=== PATIENT | male | born 1980 | race Two or more races ===

== ENCOUNTER 2017-03-18 08:47 | Emergency (ER) | payer SELFPAY ==
[2017-03-18] MEDS ORDERED: ASPIRIN 81 MG CHEWABLE TAB PO ONE (08:57)
--- NOTE | 2017-03-18 08:57 | CPEKG ---
Heart Rate: 87 RR Interval: 690 P-R Interval: 136 QRSD Interval: 84 QT Interval: 320 QTC Interval: 385 P [place]: 15 QRS [place]: 3 T Wave [place]: -11 EKG Severity - ABNORMAL ECG - EKG Impression: SINUS RHYTHM EKG Impression: NONSPECIFIC T ABNORMALITIES, INFERIOR LEADS Electronically Signed By: Jd Schilling 18-Mar-2017 09:13:39
--- NOTE | 2017-03-18 08:59 | EDPHY ---
H & P Time Seen by Provider: 03/18/17 08:54 HPI/ROS: CHIEF COMPLAINT: Chest pain HISTORY OF PRESENT ILLNESS: The patient is a 36-year-old man with no significant past medical history comes to the emergency department complaining of chest pain. He states that he has had a cold and cough for the last 2 weeks and then this morning woke up with midsternal chest pain it does hurt worse with deep inspiration. No leg pain or swelling. He states that he did have some blood in his sputum this morning. No fever. No diaphoresis. No nausea vomiting. REVIEW OF SYSTEMS: Constitutional: denies: chills, fever, recent illness, recent injury EENTM: denies: blurred vision, double vision, nose congestion Respiratory: denies: cough, shortness of breath Cardiac: See HPI Gastrointestinal/Abdominal: denies: abdominal pain, diarrhea, nausea, vomiting, blood streaked stools Genitourinary: denies: dysuria, frequency, hematuria, pain Musculoskeletal: denies: joint pain, muscle pain Skin: denies: lesions, rash, jaundice, bruising Neurological: denies: headache, numbness, paresthesia, tingling, dizziness, weakness Hematologic/Lymphatic: denies: blood clots, easy bleeding, easy bruising Immunologic/allergic: denies: HIV/AIDS, transplant EXAM: GENERAL: Anxious, hyperventilating HEAD: Atraumatic, normocephalic. EYES: Pupils equal round and reactive to light, extraocular movements intact, sclera anicteric, conjunctiva are normal. ENT: TMs normal, nares patent, oropharynx clear without exudates. Moist mucous membranes. NECK: Normal range of motion, supple without lymphadenopathy or JVD. LUNGS: Breath sounds clear to auscultation bilaterally and equal. No wheezes rales or rhonchi. HEART: Regular rate and rhythm without murmurs, rubs or gallops. ABDOMEN: Soft, nontender, normoactive bowel sounds. No guarding, no rebound. No masses appreciated. BACK: No CVA tenderness, no spinal tenderness, step-offs or deformities EXTREMITIES: Normal range of motion, no pitting or edema. No clubbing or cyanosis. NEUROLOGICAL: Cranial nerves II through XII grossly intact. Normal speech, normal gait. 5/5 strength, normal movement in all extremities, normal sensation PSYCH: Normal mood, normal affect. SKIN: Warm, dry, normal turgor, no visible rashes or lesions. Source: Patient Exam Limitations: No limitations - Medical/Surgical History Hx Asthma: No Hx Chronic Respiratory Disease: No Hx Diabetes: No Hx Cardiac Disease: No Hx Renal Disease: No Hx Cirrhosis: No Hx Alcoholism: No Hx HIV/AIDS: No - Family History Significant Family History: No pertinent family hx - Social History Smoking Status: Never smoked Alcohol Use: Sober Drug Use: None Constitutional: Initial Vital Signs Temperature (C) 36.6 C 03/18/17 08:57 Heart Rate 78 03/18/17 08:57 Respiratory Rate 18 03/18/17 08:57 Blood Pressure 133/93 H 03/18/17 08:57 O2 Sat (%) 98 03/18/17 08:57 O2 Delivery Mode Room Air Allergies/Adverse Reactions: No Known Allergies Allergy (Unverified 03/25/10 22:44) Home Medications: Medication Instructions Recorded NO HOME MEDS 03/25/10 Medical Decision Making - Diagnostics EKG Interpretation: An EKG obtained and was read and documented in trace view. Please see trace view for full reading and report. Sinus rhythm, S1 q3 T3 Imaging Results: Imaging Impressions Chest X-Ray 03/18/17 08:57 Impression: Hypoventilation. No acute process. Imaging: Discussed imaging studies w/ yardage caller Radiologist ED Course/Re-evaluation: 9:45 a.m. the patient is feeling much better. We discussed the lab and imaging results which are reassuring. He states that he has had this pain for about a week. His negative troponin is therefor very reassuring. I feel that this is likely pleurisy based on the patient's symptoms and presentation. We did discuss the other differential diagnoses. The patient would like to go home. I encouraged rest hydration and anti-inflammatories. We also discussed indications for returning to the emergency department as well as importance of follow up with his primary within the next few days. We did call his health promotion officer to receive approve for the morphine that he received. He is asking for a note for work. Differential Diagnosis: Partial list of the Differential diagnosis considered include but were not limited to; chest pain, pleurisy, bronchitis and although unlikely based on the history and physical exam, I also considered pneumonia, acute coronary disease, dissection, PE. I discussed these differential diagnoses and the plan with the patient as well as the usual and expected course. The patient understands that the diagnosis is provisional and that in medicine we are not always correct and that further workup is often warranted. Usual and customary warnings were given. All of the patient's questions were answered. The patient was instructed to return to the emergency department should the symptoms at all worsen or return, otherwise to followup with the physician as we discussed. - Data Points Laboratory Results: Laboratory Results 03/18/17 09:03 03/18/17 09:03 03/18/17 03/18/17 03/18/17 09:03 09:03 09:03 WBC 5.06 10^3/uL 10^3/uL (3.80-9.50) RBC 5.28 10^6/uL 10^6/uL (4.40-6.38) Hgb 16.1 g/dL g/dL (13.7-17.5) Hct 44.2 % % (40.0-51.0) MCV 83.7 fL fL (81.5-99.8) MCH 30.5 pg pg (27.9-34.1) MCHC 36.4 g/dL g/dL (32.4-36.7) RDW 12.8 % % (11.5-15.2) Plt Count 248 10^3/uL 10^3/uL (150-400) MPV 9.0 fL fL (8.7-11.7) Neut % (Auto) 69.5 % % (39.3-74.2) Lymph % (Auto) 16.8 % % (15.0-45.0) [place] % (Auto) 11.3 % % (4.5-13.0) Eos % (Auto) 1.6 % % (0.6-7.6) Baso % (Auto) 0.4 % % (0.3-1.7) Nucleat RBC Rel Count 0.0 % % (0.0-0.2) Absolute Neuts (auto) 3.52 10^3/uL 10^3/uL (1.70-6.50) Absolute Lymphs (auto) 0.85 10^3/uL L 10^3/uL (1.00-3.00) Absolute Monos (auto) 0.57 10^3/uL 10^3/uL (0.30-0.80) Absolute Eos (auto) 0.08 10^3/uL 10^3/uL (0.03-0.40) Absolute Basos (auto) 0.02 10^3/uL 10^3/uL (0.02-0.10) Absolute Nucleated RBC 0.00 10^3/uL 10^3/uL (0-0.01) Immature Gran % 0.4 % % (0.0-1.1) Immature Gran # 0.02 10^3/uL 10^3/uL (0.00-0.10) PT 12.4 SEC SEC (12.0-15.0) INR 0.95 (0.83-1.16) APTT 28.6 SEC SEC (23.0-38.0) D-Dimer < 0.27 ug/mLFEU ug/mLFEU (0.00-0.50) Sodium 140 mEq/L mEq/L (134-144) Potassium 4.2 mEq/L mEq/L (3.5-5.2) Chloride 102 mEq/L mEq/L (97-110) Carbon Dioxide 25 mEq/l mEq/l (22-31) Anion Gap 13 mEq/L mEq/L (8-16) BUN 9 mg/dL mg/dL (7-23) Creatinine 0.8 mg/dL mg/dL (0.7-1.3) Estimated GFR > 60 Glucose 102 mg/dL H mg/dL (70-100) Calcium 10.0 mg/dL mg/dL (8.5-10.4) Troponin I < 0.012 ng/mL ng/mL (0.000-0.034) Medications Given: Discontinued Medications Aspirin (Aspirin) 324 mg PO EDNOW ONE Stop: 03/18/17 08:58 Last Admin: 03/18/17 09:09 Dose: 324 mg Ketorolac Tromethamine (Toradol) 15 mg IVP EDNOW ONE Stop: 03/18/17 09:11 Last Admin: 03/18/17 09:12 Dose: 15 mg Morphine Sulfate (Morphine) 4 mg IVP EDNOW ONE Stop: 03/18/17 08:58 Last Admin: 03/18/17 09:41 Dose: 4 mg Ondansetron HCl (Zofran) 4 mg IVP EDNOW ONE Stop: 03/18/17 09:44 Last Admin: 03/18/17 09:46 Dose: 4 mg Departure - Departure Disposition: Home, Routine, Self-Care Clinical Impression: Chest pain Qualifiers: Chest pain type: unspecified Qualified Code(s): R07.9 - Chest pain, unspecified Upper respiratory tract infection Qualifiers: URI type: unspecified viral URI Qualified Code(s): J06.9 - Acute upper respiratory infection, unspecified; B97.89 - Other viral agents as the cause of diseases classified elsewhere; B97.89 - Other viral agents as the cause of diseases classified elsewhere Condition: Fair Instructions: Chest Pain (ED), Pleurisy (ED) Additional Instructions: Take anti-inflammatories as we discussed. Referrals: [facility] [Other] - 1-2 days without fail Stand Alone Forms: Work Excuse
[2017-03-18 09:01] VITALS: PULSE 78; RESP 18; TEMP 98
[2017-03-18] MEDS ORDERED: ONDANSETRON 4 MG/2 ML VIAL ONE (09:04)
[2017-03-18 09:09] LABS: % IMMATURE GRANULYOCYTES 0.4 % (0.0-1.1); ABSOLUTE IMMATURE GRANULOCYTES 0.02 10^3/uL (0.00-0.10); ADD DIFF? NO; ADD MORPH? NO; ADD SCAN? NO; ATYPICAL LYMPHOCYTE FLAG 10 (0-99); FRAGMENT RBC FLAG 0 (0-99); HEMATOCRIT 44.2 % (40.0-51.0); HEMOGLOBIN 16.1 g/dL (13.7-17.5); LEFT SHIFT FLG 0 (0-99); LIPEMIA HEMOLYSIS FLAG 90 (0-99); MEAN CELL HEMOGLOBIN 30.5 pg (27.9-34.1); MEAN CELL HEMOGLOBIN CONCENTR. 36.4 g/dL (32.4-36.7); MEAN CELL VOLUME 83.7 fL (81.5-99.8); PLATELET CLUMPS FLAG 10 (0-99); PLATELET COUNT 248 10^3/uL (150-400); RED BLOOD CELL COUNT 5.28 10^6/uL (4.40-6.38); RED CELL DISTRIBUTION WIDTH 12.8 % (11.5-15.2)
[2017-03-18] MEDS ORDERED: KETOROLAC 15 MG/1 ML SDV IVP ONE (09:10)
[2017-03-18 09:21] LABS: APTT 28.6 SEC (23.0-38.0); INR 0.95 (0.83-1.16); PROTIME(PATIENT) 12.4 SEC (12.0-15.0)
[2017-03-18 09:23] LABS: ANION GAP 13 mEq/L (8-16); CARBON DIOXIDE 25 mEq/l (22-31); CHLORIDE 102 mEq/L (97-110); CREATININE 0.8 mg/dL (0.7-1.3); GLOMERULAR FILTRATION RATE > 60; GLUCOSE 102 mg/dL (70-100); POTASSIUM 4.2 mEq/L (3.5-5.2); SODIUM 140 mEq/L (134-144)
[2017-03-18 09:36] LABS: TROPONIN I < 0.012 ng/mL (0.000-0.034)
[2017-03-18] MEDS ORDERED: ONDANSETRON 4 MG/2 ML VIAL IVP ONE (09:43)
[2017-03-18 10:26] VITALS: BP 119/62; O2SAT 93
== END 2017-03-18 10:25 | disposition home or self-care (01) ==
LOC: CED 08:47
DX: R07.9 Chest pain, unspecified (principal); J06.9 Acute upper respiratory infection, unspecified
CPT/HCPCS: 71020-PO; 80048-PO; 84484-PO; 85025-PO; 85378-PO; 85610-PO; 85730-PO; 96374; J1885; J2405

== ENCOUNTER 2017-05-13 10:51 | Inpatient (IN) | payer OTHER ==
--- NOTE | 2017-05-13 11:01 | EDPHY ---
H & P Time Seen by Provider: 05/13/17 10:58 HPI/ROS: CHIEF COMPLAINT: Full trauma activation, 20 ft fall, back pain, resolved lower extremity paresthesias HISTORY OF PRESENT ILLNESS: The patient presents to the emergency department as a full trauma activation. 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 The patient reportedly landed on his heels. He then fell to his back secondary to pain and weakness. The patient initially had significant weakness and paresthesias in his legs bilaterally. Those have improved during transport. The patient did not strike his head or lose consciousness. The patient complains of moderate pain throughout his thoracolumbar spine. The patient has mild abdominal pain. The patient denies headache. The patient denies significant past medical history. The patient takes no regular medications. REVIEW OF SYSTEMS: A comprehensive 10 point review of systems is otherwise negative aside from elements mentioned in the history of present illness. Source: Patient, EMS - Medical/Surgical History Hx Asthma: No Hx Chronic Respiratory Disease: No Hx Diabetes: No Hx Cardiac Disease: No Hx Renal Disease: No Hx Cirrhosis: No Hx Alcoholism: No Hx HIV/AIDS: No Other PMH: denies - Social History Smoking Status: Never smoked - Physical Exam Exam: General Appearance: Alert, no distress Head: Atraumatic Eyes: Pupils equal, round, reactive ENT, Mouth: No hemotympanum, no oral trauma Neck: In cervical collar, no palpable deformity Respiratory: No chest wall tender, no subcutaneous air, lungs clear bilaterally Cardiovascular: Regular rate and rhythm Abdomen: Tenderness to palpation in the right upper quadrant Skin: No lacerations, No abrasion Back: Tenderness to palpation in the lower thoracic, lumbar and sacral spine Extremities: Nontender, full range of motion Neurological: A&Ox3, normal motor function, normal sensory exam Constitutional: Initial Vital Signs Temperature (C) 36.4 C 05/13/17 10:51 Heart Rate 109 H 05/13/17 10:51 Respiratory Rate 18 05/13/17 10:51 Blood Pressure 138/90 H 05/13/17 10:51 O2 Sat (%) 99 05/13/17 10:51 O2 Delivery Mode Nasal Cannula O2 (L/minute) 4 Allergies/Adverse Reactions: No Known Allergies Allergy (Verified 05/13/17 11:38) Home Medications: Medication Instructions Recorded NO HOME MEDS 11/20/10 Medical Decision Making ED Course/Re-evaluation: The patient arrives to the emergency department as a full trauma activation. The patient was noted to be neurologically intact upon arrival with 5/5 strength noted in the bilateral lower extremities and normal reflexes. The patient was noted to be hemodynamically stable. He did have mild tenderness to palpation in his right upper quadrant. He had tenderness throughout his lower thoracic and lumbar spine. Given his mechanism of injury he was taken for a CT scan of the cervical, thoracic and lumbar spine in addition to a CT scan of the chest abdomen pelvis. His imaging studies demonstrate a complex lumbar fracture. The patient was seen by Dr. Jeison Chadwick from General surgery upon arrival in the emergency department. He consulted with Dr. Sherri Patel from Neurosurgery who will evaluate the patient. The patient will be admitted to the intensive care for further evaluation and management of his lumbar fractures. Differential Diagnosis: Differential diagnosis considered includes spinal cord injury, lumbar fracture, thoracic fracture, cervical spine fracture, intra-abdominal trauma Critical Care Time: Critical care time exclusive of procedures and exclusive of the PA's time was 35 minutes, performed by myself, Javy Wolf MD. The patient presents the ED as a full trauma activation with resolved acute neurologic symptoms in his lower extremities. The patient is noted to have an unstable lumbar fracture that will require admission to the hospital to the intensive care unit under the Trauma service for neuro surgical consultation. - Data Points Laboratory Results: Laboratory Results 05/13/17 11:00 05/13/17 11:00 05/13/17 05/13/17 11:00 11:00 WBC 9.63 10^3/uL H 10^3/uL (3.80-9.50) RBC 5.34 10^6/uL 10^6/uL (4.40-6.38) Hgb 16.3 g/dL g/dL (13.7-17.5) Hct 45.2 % % (40.0-51.0) MCV 84.6 fL fL (81.5-99.8) MCH 30.5 pg pg (27.9-34.1) MCHC 36.1 g/dL g/dL (32.4-36.7) RDW 13.1 % % (11.5-15.2) Plt Count 110 10^3/uL L 10^3/uL (150-400) MPV 10.9 fL fL (8.7-11.7) Neut % (Auto) 51.6 % % (39.3-74.2) Lymph % (Auto) 40.4 % % (15.0-45.0) [place] % (Auto) 4.4 % L % (4.5-13.0) Eos % (Auto) 1.2 % % (0.6-7.6) Baso % (Auto) 0.6 % % (0.3-1.7) Nucleat RBC Rel Count 0.0 % % (0.0-0.2) Absolute Neuts (auto) 4.97 10^3/uL 10^3/uL (1.70-6.50) Absolute Lymphs (auto) 3.89 10^3/uL H 10^3/uL (1.00-3.00) Absolute Monos (auto) 0.42 10^3/uL 10^3/uL (0.30-0.80) Absolute Eos (auto) 0.12 10^3/uL 10^3/uL (0.03-0.40) Absolute Basos (auto) 0.06 10^3/uL 10^3/uL (0.02-0.10) Absolute Nucleated RBC 0.00 10^3/uL 10^3/uL (0-0.01) Immature Gran % 1.8 % H % (0.0-1.1) Immature Gran # 0.17 10^3/uL H 10^3/uL (0.00-0.10) Sodium 141 mEq/L mEq/L (134-144) Potassium 4.4 mEq/L mEq/L (3.5-5.2) Chloride 105 mEq/L mEq/L (97-110) Carbon Dioxide 20 mEq/l L mEq/l (22-31) Anion Gap 16 mEq/L mEq/L (8-16) BUN 14 mg/dL mg/dL (7-23) Creatinine 0.8 mg/dL mg/dL (0.7-1.3) Estimated GFR > 60 Glucose 125 mg/dL H mg/dL (70-100) Calcium 9.9 mg/dL mg/dL (8.5-10.4) Medications Given: Discontinued Medications Hydromorphone HCl (Dilaudid) 1 mg IVP EDNOW ONE Stop: 01/08/18 11:31 Last Admin: 05/13/17 11:32 Dose: 1 mg Departure - Departure Disposition: [facility] In[facility] Acute Clinical Impression: Lumbar verterbral fracture, traumatic Condition: Fair Referrals: Patient,NotPresent [Primary Care Provider] - As per Instructions
[2017-05-13 11:09] LABS: PLATELET COUNT 110 10^3/uL (150-400)
[2017-05-13] MEDS ORDERED: HYDROmorphONE/DILAUDID 1 MG/ML INJ ONE (11:24)
[2017-05-13] MEDS ORDERED: HYDROmorphONE/DILAUDID 1 MG/ML INJ IVP ONE (11:30)
[2017-05-13] MEDS ORDERED: ONDANSETRON DISINTEGRATING 4 MG TAB PO PRN (11:45)
[2017-05-13] MEDS ORDERED: LORazepam 2 MG/ML INJ ONE (11:52)
[2017-05-13] MEDS ORDERED: LORazepam 2 MG/ML INJ IVP ONE (11:56)
[2017-05-13 11:59] LABS: INR 0.96 (0.83-1.16)
--- NOTE | 2017-05-13 12:16 | GHP ---
[f rep st] HISTORY AND PHYSICAL CHIEF COMPLAINT: Back pain. 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 Initially he complained of some numbness in his legs, but this resolved. Brought in on a backboard with a C-collar in place. Alert, oriented, stable vital signs. History is obtained from the patient. ALLERGIES: None. CURRENT MEDICATIONS: None. SOCIAL HISTORY: Nonsmoker, nondrinker. PREVIOUS SURGERY: None. REVIEW OF SYSTEMS: Denies asthma, heart trouble, diabetes, epilepsy, rheumatic fever. His chief complaint is lumbar pain. PHYSICAL EXAMINATION: HEENT: Head atraumatic. Tongue protrudes in the midline. PERRL, EOMI. Sclerae are nonicteric. NECK: C-collar is removed. Neck is palpated. No tenderness. The collar was left on but then removed later by myself when the CT scan was also corroborative of no cervical injury and again the patient was nontender. There is no supraclavicular or axillary crepitus. Clavicles are intact. LUNGS: Clear. HEART: Normal S1, S2, without murmurs. Sternum stable. Ribs stable. ABDOMEN: Soft, benign. Mid and lower lumbar pain to palpation when the patient is rolled on his side. PELVIS: Stable to compression. EXTREMITIES: Lower extremities are atraumatic. Heels, ankles have full range of motion. Strength in the feet, both with plantar and dorsiflexion was normal. Sensation intact. IMAGING: The patient underwent a CT scan of the neck and abdomen which was remarkable for multiple fractures of the lumbar spine including 1-5 transverse process fractures on the right, fractures at least of 2, 3, 4 of the vertebral bodies with the L4 fracture being the most significant, going through the pedicles, and apparently facets involved as well. No visceral injuries in the abdomen. ASSESSMENT: Probable unstable L4 fracture, although neurosurgery has not given an opinion yet. I have spoken to Sherri Patel who will review the films and see the patient. The patient will be sent to the ICU for neuro monitoring and we will await neurosurgical evaluation. /[id number]/MODL MTDD
[2017-05-13] MEDS ORDERED: KETAMINE 200 MG/20 ML VIAL ONE (12:23)
[2017-05-13] MEDS ORDERED: KETAMINE 200 MG/20 ML VIAL IVP ONE (12:25)
--- NOTE | 2017-05-13 13:52 | GCON ---
[f rep st] CONSULTATION Patient seen in the emergency department in room 2 at 11:52 a.m. on 05/13/2017, with Dr. Patel. CHIEF COMPLAINT: 1. Full trauma activation. 2. Twenty foot fall, landing on back, with resolved lower extremity paresthesias. 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 He was 20 fe et up and he fell backwards, landing on his back. He did have a transient period of paresthesias at t he time, but denies any at this time. The patient was seen in the emergency department both by myself and Dr. Patel on 05/13/2017 at 11:52 a.m. Patient came to the emergency department as a full traum a activation, as I mentioned above. He was working on trimming a tree and he fell 20 feet. He reporte d to the ER doctor that he landed on his heels first, but reported to us that he landed on his back f irst. It is unclear exactly which occurred first, the heels or the back, but nonetheless, he has thor acic and lumbar spine pain on our exam. He denies any significant weakness in his legs. No paresthesi as in his legs bilaterally. Denies any saddle numbness. No groin numbness. He states he is able to vo id okay. He did not strike his head. Did not lose consciousness. He has no neck pain. No chest pain. No shortness of breath. The patient was seen by Dr. Chadwick, from trauma surgery and we were consul [place] to help manage his fracture that he had in his back. REVIEW OF SYSTEMS: A comprehensive 10-point review of systems was otherwise negative, other than not ed in [facility]. PAST MEDICAL HISTORY: None. PAST SURGICAL HISTORY: None. MEDICATIONS: None. ALLERGIES: No known drug allergies. FAMILY HISTORY: Is reviewed and noncontributory. SOCIAL HISTORY: The patient is . He lives in the [place] area. 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 He d oes not smoke, does not drink any alcohol, does not use any illicit drugs. PHYSICAL EXAMINATION: GENERAL: This is an awake, alert, oriented male, in no acute distress. VITAL S IGNS: Most recent vital signs, blood pressure 138/90 with a MAP of 106, heart rate 109, respiratory r ate of 18, 99% on 4 L nasal cannula, temperature 36.4. HEENT: Head is normocephalic, atraumatic. Pupi ls are equal, round, reactive to light. EOMI is intact. Full visual alfonso by confrontation. Ears are patent. Nose is patent. NECK: Soft and supple. No midline tenderness. Full range of motion in flexio n, extension, lateral bending and rotation. RESPIRATORY: Deferred. CARDIAC: Deferred. ABDOMEN: Soft, nontender. No peritoneal signs. NEURO: Patient is awake, alert, oriented to name, place, location, da te, time, situation. Memory is intact to immediate, past, and current events. Speech: No aphasia, dys arthria, dysphonia. Cranial nerves 2-12 grossly intact. Motor: Patient has 5/5 strength in all muscle groups of the bilateral lower extremities to include deltoids, biceps, triceps, brachioradialis, wri st flexors, extensors, cylinder press operator, intrinsic fingers, iliopsoas, quadriceps, hamstring, plantar flexion, do rsiflexion, EHL testing. Sensation is grossly intact to light touch throughout all dermatomal distrib utions of lower extremities. Negative straight leg raise. Negative ELMER test. Reflexes of biceps, tr iceps, brachioradialis, knee jerk and ankle jerk 2+ out of 4. Toes are downgoing bilaterally. Narvaez 's negative. Babinski evidence of clonus. DECISION MAKING DIAGNOSTIC STUDIES: Laboratory tests: Obtained 05/13/2017, shows a white count 9.63, with an H and H of 16.3 and 45.2, platelet count of 110. Coags on 05/13/2017, shows a PT of 13.0, IN R 0.96, and PTT of 23.8. Chemistry on 05/13/2017, sodium 141, potassium 4.4, chloride 105, CO2 20, BU N 14, creatinine 0.8, and glucose 125. Imaging: CT of the lumbar spine shows a fracture of L4 through the vertebral body. There is also spla caron of the L4-L5 facet joint noted. Chest and abdominal CT deferred. Thoracic spine CT, no acute fra cture noted. Pending MRI of the thoracic spine. Pending MRI of the lumbar spine. IMPRESSION: 1. Full trauma activation. 2. Fall of 20 feet, with lower back and thoracic spine pain. 3. L4 fracture, with splaying of L4-L5 facet joints. PLAN/DISCUSSION: The patient is a 36-year-old male who fell 20 feet off a ladder while he was trimmi ng some trees. He came in as a full trauma activation to [facility]. Trauma evaluatio n was performed with Dr. Chadwick. We were consulted from Neurosurgery. He has splaying of the L4-5 joint with a fracture of L4 itself. Recommendations for an MRI of the thoracic and lumbar spine were given to the patient. These images were ordered. The patient will remain in bed rest. We can logroll him at this time, but no recommendations for ambulation at this point. The patient was seen, evaluate d both myself and Dr. Patel in the emergency department. The patient will be on step-down status wi th the ICU, and we will get a pending MRI of the thoracic and lumbar spine. The patient understands a nd agrees. All questions and concerns were answered. /[id number]/MODL
--- NOTE | 2017-05-13 15:25 | ASMTCMCOM ---
CM Note CM Note Notes: Patient brought into ED via EMS as Full Trauma Activation after he fell approximately 20 feet from a tree he was trimming. Patient admitted for several lumbar fractures and further neuro monitoring. Patient's brother, Reyes Polanco (Lorenzo) ([phone]) was only listed emergency contact. Spoke with Mitesh; updated on patient's status and he later arrived to the ED. Mitesh contacted pt's mother Huma Be ([phone]) and patient's Olivia Polanco ([phone]); both also later arrived to the ED. Patient and Olivia live in [place]. Patient works for [employer] ([phone]). Pt's sales branch manager is Francisco Javier Mendez ([phone]) and presented to the ED, provided update and workman's comp paperwork. Neurosurg to follow; anticipate PT/OT evals when medically stable. CM to follow. Date Signed: 05/13/2017 03:24 PM Electronically Signed By:Priya Geronimo RN
[2017-05-13] MEDS: LR 1,000 ML IV SCH ×2 (16:18→18:35)
--- NOTE | 2017-05-13 18:20 | SOAPPROG ---
[facility] Progress Note Assessment/Plan: Chart update: Pt needed the MRI done and received sedation and pain medication for this. The films were reviewed with Dr Patel and Dr Floyd this afternoon and recommended a LSO brace. MRI of the T spine was negative. MRI of the L spine reviewed with Dr Muro as well that shows intradural and epidural hematoma and noted fracture at L4 level. Reports of neuro intact at that time. No current saddle numbness or perianal numbness. No LE complaints of numbness , tingling or weakness. At the time this afternoon we recommended to continue to watch. HOB ok to 25-30 degrees without brace. Brace fit by [employer]. Upright xrays done that were reviewed with Dr Patel that show stable findings. RN reported at 1747 that patient unable to void and straight cath done. Unsure if this change in neuro status or result of recent sedation and pain medications. We will have patient stand and void and if unable we will likely need to take to OR tonight for a L3-L5 fusion and decompression. Dr Patel aware of this newly reported finding. Pt made NPO in case surgery is needed in the near future. 05/13/17 18:09 Objective: Vital Signs Temp Pulse Resp BP Pulse Ox 36.8 C 116 H 23 H 123/78 H 98 05/13/17 12:35 05/13/17 16:32 05/13/17 16:32 05/13/17 16:32 05/13/17 16:32 05/12/17 05/13/17 05/14/17 05:59 05:59 05:59 Intake Total 1627 Output Total 950 Balance 677 PT 13.0 SEC (12.0-15.0) 05/13/17 10:58 INR 0.96 (0.83-1.16) 05/13/17 10:58 ICD10 Worksheet Patient Problems: Problems Problem Status Onset Lumbar verterbral fracture, traumatic Acute
[2017-05-13] MEDS ORDERED: ceFAZolin 2 GM in D5W 100 ML IV ONE (19:16)
[2017-05-13] MEDS ORDERED: ceFAZolin 2 GM/SWFI 2 GM/20 ML SYR IVP ONE (19:30)
[2017-05-13] MEDS ORDERED: BUPIVACAINE 0.25% 30 ML SDV ONE ×2 (20:40→20:42)
--- NOTE | 2017-05-13 20:40 | PDANEPAE ---
ANE Past Medical History - Cardiovascular History Hx Hypertension: No Hx Arrhythmias: No Hx Chest Pain: No Hx Coronary Artery / Peripheral Vascular Disease: No Hx CHF / Valvular Disease: No Hx Palpitations: No - Pulmonary History Hx Oxygen in Use at Home: No Hx Sleep Apnea: No - Endocrine History Hx Diabetes: No - Chronic Pain History Chronic Pain: No ANE Review of Systems Review of Systems: - Exercise capacity METS (RN): 5 METS ANE Patient History - Allergies Allergies/Adverse Reactions: No Known Allergies Allergy (Verified 05/13/17 11:38) - Home Medications Home Medications: Multivitamins [Multivitamin (*)] 1 each PO DAILY 05/13/17 [Last Taken Unknown] - Smoking Hx Smoking Status: Never smoked ANE Labs/Vital Signs - Labs Result Diagrams: 05/13/17 11:00 05/13/17 11:00 - Vital Signs Blood Pressure: 124/78 Heart Rate: 107 Respiratory Rate: 16 O2 Sat (%): 99 Height: 170.18 cm Weight: 77.11 kg ANE Anesthesia Plan Anesthesia Plan: general endotracheal anesthesia
[2017-05-13] MEDS ORDERED: SURGIFLO MATRIX KIT WITH THROMBIN 8ml TP ONE (20:42)
[2017-05-13] MEDS ORDERED: THROMBIN (BOVINE) 5,000 UNIT VIAL TP ONE (20:42)
[2017-05-13] MEDS ORDERED: CHLORHEXIDINE GLUC HIBICLENS 118 ML BTL TP ONE (20:42)
[2017-05-13] MEDS ORDERED: BACITRACIN 50,000 UNITS/10 ML SYR IRR ONE (20:44)
[2017-05-13] MEDS ORDERED: PROPOFOL/EMULSION 500 MG/50 ML BOTTLE IV ONE ×2 (20:52→23:02)
[2017-05-13] MEDS ORDERED: fentaNYL 100 MCG/2 ML INJ ONE (20:52)
[2017-05-13] MEDS ORDERED: PROPOFOL 200 MG/20 ML VIAL ONE (20:53)
[2017-05-13] MEDS ORDERED: REMIFENTANIL HCL 1 MG VIAL ONE ×2 (21:09)
[2017-05-13] MEDS ORDERED: LIDOCAINE 2% 5 ML SDV ONE (21:11)
[2017-05-13] MEDS ORDERED: ONDANSETRON 4 MG/2 ML VIAL ONE (21:11)
[2017-05-13] MEDS ORDERED: DEXAMETHASONE 4 MG/ML VIAL ONE (21:11)
[2017-05-13] MEDS ORDERED: ROCURONIUM 50 MG/5 ML VIAL ONE (21:11)
[2017-05-13] MEDS ORDERED: SUCCINYLCHOLINE CHLORIDE 200 MG/10 ML SYR IVP ONE ×2 (21:11)
[2017-05-13] MEDS ORDERED: PHENYLEPHRINE HCL 100 MCG/ML SYR ONE (21:32)
[2017-05-13] MEDS ORDERED: NALOXONE HCL 0.4 MG/ML INJ IVP PRN (22:33)
[2017-05-13] MEDS ORDERED: PROMETHAZINE HCL 25 MG/ML INJ IVP PRN (22:33)
[2017-05-13] MEDS ORDERED: fentaNYL 100 MCG/2 ML INJ IVP PRN (22:33)
[2017-05-13] MEDS ORDERED: ONDANSETRON 4 MG/2 ML VIAL IVP PRN (22:33)
[2017-05-13] MEDS ORDERED: DIAZEPAM 10 MG/2 ML SYR IVP PRN (22:33)
[2017-05-13] MEDS ORDERED: LR 500 ML IV PRN (22:33)
[2017-05-13] MEDS ORDERED: MEPERIDINE 25 MG/ML SYR IVP PRN (22:33)
[2017-05-14] MEDS ORDERED: REMIFENTANIL HCL 1 MG VIAL ONE ×2 (00:10→00:14)
[2017-05-14] MEDS ORDERED: PROPOFOL/EMULSION 500 MG/50 ML BOTTLE IV ONE (00:10)
[2017-05-14] MEDS ORDERED: DIAZEPAM 10 MG/2 ML SYR ONE (00:49)
[2017-05-14] MEDS ORDERED: BACITRACIN 50,000 UNITS/10 ML SYR IRR ONE (00:52)
[2017-05-14] MEDS ORDERED: BISACODYL 10 MG SUPP PR PRN (01:24)
[2017-05-14] MEDS ORDERED: NALOXONE HCL 0.4 MG/ML INJ IVP PRN (01:24)
[2017-05-14] MEDS ORDERED: NS 500 ML IV PRN (01:24)
[2017-05-14] MEDS ORDERED: POLYETHYLENE GLYCOL 3350 17 GM PKT PO PRN (01:24)
[2017-05-14] MEDS ORDERED: LACTULOSE 20 GM/30 ML UDCUP PO PRN (01:24)
[2017-05-14] MEDS ORDERED: diphenhydrAMINE 25 MG CAP PO PRN (01:24)
[2017-05-14] MEDS ORDERED: ONDANSETRON 4 MG/2 ML VIAL IVP PRN (01:24)
[2017-05-14] MEDS ORDERED: HYDROmorphONE/DILAUDID 6 MG/30 ML PCA IV PRN (01:24)
[2017-05-14] MEDS ORDERED: MAGNESIUM HYDROXIDE 30 ML UDCUP PO PRN (01:24)
[2017-05-14] MEDS ORDERED: NS W/ 20 KCl/L 1,000 ML IV SCH (01:30)
[2017-05-14] MEDS ORDERED: DEXMEDETOMIDINE IN 0.9 % NACL 100 ML IV SCH (01:30)
--- NOTE | 2017-05-14 01:34 | GOP ---
[f rep st] OPERATIVE REPORT DATE OF OPERATION: 05/14/2017 SURGEON: Sherri Patel DO SCALE TANK OPERATOR: Holland Aquino PA-C PREOPERATIVE DIAGNOSIS: 1. L4 burst fracture. 2. Cauda equina syndrome. POSTOPERATIVE DIAGNOSIS: 1. L4 burst fracture. 2. Cauda equina syndrome. PROCEDURE PERFORMED: 1. L3, L4, L5 posterior pedicle screws. 2. L3-4 and L4-5 posterior arthrodesis. 3. L4-5 laminectomy. 4. L4 open reduction of fracture. 5. Autograft, allograft, bone morphogenetic proteins. FINDINGS: SPECIMENS: None. ESTIMATED BLOOD LOSS: 250 mL. INDICATIONS: This is a 36-year-old male, who fell approximately 20 feet out of a tree, sustaining an L4 two-column injury with disruption of the L4-5 facets with gross instability and L4 pedicle and po sterior body disruption. There was also an epidural hematoma and a reported subdural hematoma, altho ugh not seen in surgery. He developed urinary retention, and despite a large number of narcotics it was difficult to determine whether or not this was a cauda equina, so I had a discussion with the coy ramirez. He and his family elected to move forward with decompression and fusion. DESCRIPTION OF PROCEDURE: He was identified, consented, sites were marked, brought to the operating room, anesthetized under general endotracheal tube anesthesia, and rolled onto the Oswaldo table. Al l pressure points were appropriately padded. He was prepped and draped in the usual sterile fashion. Incision was marked with an 18-gauge spinal needle and the O-arm. Incision was anesthetized with 0 .5% Marcaine with epinephrine. Incision was made with a 10 blade. Hemostasis was obtained with Bovi e and bipolar cautery and Aquamantys. Dissecting down, there was significant disruption of the poste rior musculature and fascia, coming down on a complete disruption of the interspinous ligament at L4 and L5. We dissected down onto the lamina around the facet joints. The facet at L4-5 was significan tly widened as well. Once we had verified we were in the appropriate position under x-ray, we placed a stealth stereotactic arm, and then using the awl stereotactically created a starting point at L5 o n the left, then stereotactically tapped and measured and stereotactically placed a 6.5 x 40 mm Medtr onic Solera screw. After verifying the hole with a ball-tip probe, we completed this procedure at L4 on the left with a 6.5 x 45, reducing that fracture fragment, as well as a 6.5 x 45 mm at L3 on the left, a 6.5 x 50 mm at L3 on the right, a 6.5 x 45 mm screw at L4 on the right, reducing that fractur e fragment, and a 6.5 x 40 mm screw at L5 on the right. We stimmed all screws. The left L3 screw st immed at 13. Everything else stimmed above 20. We performed a stereotactic spin. I was not entirel y pleased with the trajectory of the L3 and L4 on the left, so they were removed and new stereotactic starting point and trajectory were performed. We replaced these screws and stimmed them. They stim med above 20. O-arm revealed they were in the appropriate position with a better trajectory, in my o vianca, to optimize fusion. We then measured 70 mm rods, placed caps, and locked these into place us ing the anti-torque device. We used a high-speed drill to decorticate the facet joints bilaterally a t 3-4 and 4-5 and decorticate all the bone. We then used a Leksell to remove the spinous process and lamina at L4 and L5, extending this with 3 and 4 Kerrisons until we were well decompressed. We then copiously irrigated with over 2.5 L of gentamicin-infused saline, placed BMP and the patient's own b one into the facet joints that had been decorticated bilaterally, trocar to drain out inferiorly, kristin jordan it in the subfascial space, closed the fascia with 0 Vicryl pop-offs, subcutaneous layer with 2-0 Vicryl pop-offs, and cutaneous layer with 3-0 Vicryl pop-offs. The skin was closed with 4-0 running Monocryl and Steri-Strips. Drain was sutured in with a 2-0 Vicryl pop-off and placed to bulb suctio n. Neuromonitoring remained stable. There were no complications. FLUIDS: 1800 mL crystalloid. URINE OUTPUT: Not recorded. DRAINS: One GIANFRANCO in the subfascial space to bulb suction. COMPLICATIONS: None. /[id number]/MODL
--- NOTE | 2017-05-14 01:53 | SOAPPROG ---
SOAP Progress Note Assessment/Plan: Post Op Visit S: Awake to verbal. NAD. Pt with expected lower back pain O: AFVSS, PERRLA/EOMI no droop CN 2-12 grossly intact +lt touch SMITHA x [address] A/P: 36 yo male that is s/p L3-L5 fusion with reductions of L4 fracture and decompression at L4/5 -orders in place -call with any questions or concerns -take medications as directed -pt understands and agrees 05/14/17 01:40 Objective: Vital Signs Temp Pulse Resp BP Pulse Ox 37.4 C 107 H 16 124/78 H 99 05/13/17 19:50 05/13/17 20:40 05/13/17 20:40 05/13/17 20:40 05/13/17 20:40 05/12/17 05/13/17 05/14/17 05:59 05:59 05:59 Intake Total 1627 Output Total 950 Balance 677 PT 13.0 SEC (12.0-15.0) 05/13/17 10:58 INR 0.96 (0.83-1.16) 05/13/17 10:58 ICD10 Worksheet Patient Problems: Problems Problem Status Onset Lumbar verterbral fracture, traumatic Acute
[2017-05-14] MEDS: morphINE SR 15 MG TAB PO SCH ×3 (04:32→21:15)
[2017-05-14] MEDS: HYDROmorphONE/DILAUDID 1 MG/ML INJ IVP PRN ×2 (04:36→10:46)
[2017-05-14] MEDS: GABAPENTIN 300 MG CAP PO SCH ×3 (05:15→21:14)
[2017-05-14] MEDS: ACETAMINOPHEN 500 MG TAB PO SCH ×3 (05:16→21:14)
[2017-05-14] MEDS: ceFAZolin 2 GM/DEXTROSE 100 ML IV SCH ×2 (05:25→14:28)
[2017-05-14 05:32] LABS: PLATELET COUNT 193 10^3/uL (150-400)
--- NOTE | 2017-05-14 08:08 | SOAPPROG ---
SOAP Progress Note Assessment/Plan: Assessment: 36 yo M sp L3-5 fusion with L4/5 laminectomy Plan: neuro: stable and doing well overall PT/OT standing x-rays today remove church LSO brace when out of bed scd/dakotah for dvt prophylaxis q4 hour neuro checks please call with neuro changes discussed with Dr Patel 05/14/17 07:57 05/14/17 08:09 Subjective: + back pain, no leg pain, no weakness, buttock numbness better. Objective: Vital Signs Temp Pulse Resp BP Pulse Ox 37.1 C 89 13 94/51 L 99 05/14/17 07:46 05/14/17 04:00 05/14/17 07:46 05/14/17 07:46 05/14/17 07:46 Laboratory Results 05/14/17 05:20 05/14/17 05:20 05/13/17 05/14/17 05/15/17 05:59 05:59 05:59 Intake Total 1987 Output Total 1515 30 Balance 472 -30 PT 13.0 SEC (12.0-15.0) 05/13/17 10:58 INR 0.96 (0.83-1.16) 05/13/17 10:58 AAOx4, +FC PERRL, EOMI, no facial droop 5/5 + light touch C/D/I ICD10 Worksheet Patient Problems: Problems Problem Status Onset Lumbar verterbral fracture, traumatic Acute
[2017-05-14] MEDS: SENNOSIDES/DOCUSATE SODIUM TAB PO SCH ×2 (08:24→21:14)
[2017-05-14] MEDS: FAMOTIDINE 20 MG TAB PO SCH ×2 (08:24→21:14)
--- NOTE | 2017-05-14 08:57 | TRAUMAPN ---
Assessment/Plan: s/p L3-5 fusion with laminectomy Doing well No additional injuries noted on tertiary survey Neurosurgery will be primary Please do not hesitate to reach out with additional questions or concerns S: Sleeping comfortably, pain controlled Objective: Vital Signs Temp Pulse Resp BP Pulse Ox 37.1 C 89 13 94/51 L 99 05/14/17 07:46 05/14/17 04:00 05/14/17 07:46 05/14/17 07:46 05/14/17 07:46 Laboratory Results 05/14/17 05:20 05/14/17 05:20 05/13/17 05/14/17 05/15/17 05:59 05:59 05:59 Intake Total 1987 255.2 Output Total 1515 30 Balance 472 225.2 PT 13.0 SEC (12.0-15.0) 05/13/17 10:58 INR 0.96 (0.83-1.16) 05/13/17 10:58 Physical Exam - Physical Exam General Appearance: WD/WN, no apparent distress Respiratory: chest non-tender, lungs clear, normal breath sounds Cardiac/Chest: regular rate, rhythm, No edema Abdomen: normal bowel sounds, non-tender, soft Skin: normal color, warm/dry Neuro/Psych: no motor/sensory deficits
--- NOTE | 2017-05-14 09:46 | ASMTCMCOM ---
CM Note CM Note Notes: 36 year old male fell 20' while tree trimming, had lumbar fx's. POD#1 after L3-5 Fusion, L4-5 Lami. To wear a brace and work with therapies. Received a call from [facility] [facility] [phone], who can assist w/discharge planning. CM to follow. Date Signed: 05/14/2017 09:46 AM Electronically Signed By:Jodi Hahn LCSW
[2017-05-14] MEDS: oxyCODONE IR 5 MG TAB PO PRN ×2 (10:47→15:42)
[2017-05-14] MEDS: METHOCARBAMOL 750 MG TAB PO PRN ×3 (10:47→23:10)
--- NOTE | 2017-05-14 13:58 | POSTANESTH ---
Post Anesthetic Evaluation Cardiovascular Status: Similar to Pre-Op Cond Respiratory Status: Normal, Stable Level of Consciousness/Mental Status: Can Participate in Eval Pain Control: Adequate, Prn Tx Ordered Nausea/Vomiting Control: Adequate, Prn Tx Ordered Complications Possibly Related to Anesthesia: None Noted
--- NOTE | 2017-05-14 16:36 | GCON ---
[f rep st] CONSULTATION PULMONARY/CRITICAL CARE CONSULTATION DATE OF CONSULTATION: 05/14/2017 REASON FOR CONSULTATION: Intensive care unit evaluation and management following lumbar vertebral bu rst fracture sustained after falling from a tree. HISTORY: The patient is healthy. 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 He fell apparently 20 feet out of a tree landing on his back. Initially, he was unable to move his lower extremities, but this resolved. In the emergency room, he was found to have a burst fracture at L4. The surrounding vertebral bodies a nd facets had less severe injuries. The L4 fracture was felt to be unstable. An MRI was performed. He was taken to the operating room last night where surgery from L3-L5 was done with hardware placed , laminectomy performed at L4-5, L4 reduction of the fracture, and placement of hardware. Estimated blood loss was 250 mL. There were no complications. He was returned to the intensive care unit in g ood condition. He had no lower extremity weakness prior to the procedure but did have some perianal paresthesia consistent with a cauda equina syndrome. This has resolved. PAST MEDICAL HISTORY: The patient has no medical problems, takes no medications. DRUG ALLERGIES: No known drug allergies. REVIEW OF SYSTEMS: 10-point review of systems is negative. He denies heart disease or lung disease. He is a nonsmoker, does not drink significant alcohol. SOCIAL HISTORY: The patient is with a supportive spouse. Tobacco and alcohol are negative. Drugs negative. FAMILY HISTORY: Noncontributory. PHYSICAL EXAMINATION: GENERAL: Reveals a gentleman, who is lying comfortably in bed. He is somewha t somnolent but arousable and responsive. This is secondary to pain medications. He was on Precedex previously, but this was recently stopped. VITAL SIGNS: Blood pressure is approximately 105/55. H eart rate is 83 with sinus rhythm on the monitor. He is afebrile. Oxygen is in place at 1-2 L. MANUEL NT: Unremarkable for lymphadenopathy or thyromegaly. There is no jugular venous distention. There are no signs of head trauma. Pupils appear equal. CHEST: Clear bilaterally. Breath sounds are dim inished at the bases. HEART: Regular in rate and rhythm. There are no significant murmurs, no gall ops. ABDOMEN: Soft and nontender. Bowel sounds are present, but diminished. A Alegria catheter is i n place, to be removed in the near future. BACK: The back was not examined. A Oswaldo-Gibson drain is in place. EXTREMITIES: There is no lower extremity edema or signs of significant trauma related to the lower extremities. NEUROLOGIC: Grossly intact. He has good strength and movement of lower e xtremities, reports normal sensation bilaterally. RECTAL: Not done. DATABASE: Radiologic studies are as noted above and outlined by others. Laboratory: White blood cell count is 8100. Hematocrit 34, down from 45 on admission. The platelet s are 193,000. PT and PTT were normal on admission. Basic metabolic panel is normal, glucose 139. ASSESSMENT: 1. Lumbar spine injury secondary to a mechanical fall with burst fracture of L4, status post surgica l decompression and stabilization. He is doing well postoperatively. Pain management is appropriate . Precedex has been stopped. A Dilaudid ACCORDION TUNER will be continued, with p.r.n. pain medications as need ed. Hopefully within the next 24 hours he can transition over to oral pain medications alone. 2. Acute blood-loss anemia. Hematocrit is 34, secondary to expected blood loss and equilibration. This will be followed. 3. Prophylaxis. Enoxaparin will be initiated on 05/17. SCDs will be used till then. Pepcid is yvonne ng given for GI prophylaxis. PLAN AND RECOMMENDATIONS: The patient will be kept in the intensive care unit for neuro checks for n ow. He will ambulate with Physical Therapy, with a back brace in place. Alegria catheter will be skyler marisabel. Appropriate pain management will be maintained. Laboratory will be followed. Further plans and recommendations will be made based on his progress over the next 12-24 hours. /[id number]/MODL
--- NOTE | 2017-05-14 19:32 | CPEKG ---
Heart Rate: 120 RR Interval: 500 P-R Interval: 124 QRSD Interval: 84 QT Interval: 312 QTC Interval: 441 P [place]: 11 QRS [place]: 11 T Wave [place]: -33 EKG Severity - BORDERLINE ECG - EKG Impression: SINUS TACHYCARDIA EKG Impression: BORDERLINE T ABNORMALITIES, DIFFUSE LEADS Electronically Signed By: Raymond Avalos 15-May-2017 06:39:57
[2017-05-14 19:59] LABS: PLATELET COUNT 199 10^3/uL (150-400)
[2017-05-14] MEDS ORDERED: IOPAMIDOL (ISOVUE 370) 100 ML BTL IV ONE (20:16)
--- NOTE | 2017-05-14 21:03 | GCON ---
[f rep st] CONSULTATION INTERNAL MEDICINE CONSULTATION DATE OF CONSULTATION: 05/14/2017 REFERRING PHYSICIAN: Sherri Patel DO REASON FOR REFERRAL: Chest pain. HISTORY OF PRESENT ILLNESS: This is a 36-year-old male who was admitted yesterday as a trauma. 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 Th is was unstable, and he to the OR yesterday. He was doing well until about shift change, when he dev eloped the sudden onset of sharp, pleuritic chest pain on his left. He can point to where it hurts t he most. This is associated with shortness of breath and tachycardia. He also is mildly hypoxic at 88% on room air. He has received morphine and he feels a bit better. He also states that he had cathy e left arm tingling and numbness and left leg, but that is better; it is now only on his fingertips a nd toes. REVIEW OF SYSTEMS: A 10-point review of systems was obtained and other than stated is negative. PAST MEDICAL HISTORY: None. MEDICATIONS: Reviewed. SOCIAL HISTORY: No smoking or alcohol. Is with several young children. FAMILY HISTORY: Noncontributory. PHYSICAL EXAM: VITAL SIGNS: Afebrile, blood pressure is 111/63, heart rate about 110, oxygen satura tion is on 90% on 6 L. GENERAL: The patient is in moderate distress secondary to pain. HEENT: Non icteric sclerae. Extraocular movements intact. NECK: Supple. LUNGS: Good effort. Clear to auscu ltation bilaterally. CARDIOVASCULAR: Tachycardic. No murmurs, rubs, or gallops. Point tenderness in the left anterior chest wall. ABDOMEN: Positive bowel sounds. Soft, nontender, nondistended. N o hepatosplenomegaly. EXTREMITIES: No clubbing, cyanosis, or edema. SKIN: Without rash. Dry, int act. NEUROLOGIC: Alert and oriented x3. Moving all 4 extremities equally. Maybe slightly decrease d strength and olericulturist strength in the left and plantar flexion. LABS: Chemistry this morning was normal with a normal creatinine. Hemoglobin is 11. EKG personally reviewed and interpreted shows sinus tachycardia. There is some T-wave flattening dif fusely. Chest x-ray shows atelectasis. ASSESSMENT: This is a 36-year-old male with a recent fall and L4 burst fracture, presenting with acu te chest pain, tachycardia, and hypoxia. PLAN: Pulmonary embolism is at the top of possibilities, and he will be going for a CT scan shortly. This does not appear to be a cardiac issue. I guess he could have some type of aortic dissection a s well. A CAT scan should clarify this. Will continue pain medicine control and follow up on his CA T scan. /[id number]/MODL
[2017-05-15] MEDS: oxyCODONE IR 5 MG TAB PO PRN ×4 (01:47→23:54)
[2017-05-15] MEDS: ACETAMINOPHEN 500 MG TAB PO SCH ×3 (05:52→21:03)
[2017-05-15] MEDS: GABAPENTIN 300 MG CAP PO SCH ×3 (05:52→21:03)
[2017-05-15] MEDS: HYDROmorphONE/DILAUDID 1 MG/ML INJ IVP PRN (05:57)
[2017-05-15] MEDS: METHOCARBAMOL 750 MG TAB PO PRN ×3 (05:57→21:03)
--- NOTE | 2017-05-15 07:23 | NEUSURGPN ---
Date of Surgery: 05/13/17 Post Op Day: 2 Assessment/Plan: Assessment: 36 yo M sp L3-5 fusion with L4/5 laminectomy POD #2 Plan: -neuro: stable and doing well overall -PT/OT-CPM -standing x-rays pending today -church removed and voiding -LSO brace when out of bed -scd/dakotah for dvt prophylaxis -q4 hour neuro checks -please call with neuro changes -ok to go to floor from NS if ok with trauma/critical care and IM -discussed/seen with Dr Patel Subjective: Awake and alert. NAD. Eating/drinking and voiding. No f/c/n/v/d. No numbness to arms/legs or groin/perianal area Objective: AAO x 3, PERRLA/EOMI no droop CN 2-12 grossly intact +lt touch 5/5 BUE/BLE = CDI GIANFRANCO in place Neuro Check Frequency: per routine Urinary Catheter in Place: No Catheter Insertion Date: 05/14/17 - Physician Discussed Patient with : Amanda Patient Seen by : Amanda Neurosurgery Physical Exam - Vitals, I&O, Labs I and O 05/14/17 05/15/17 05/16/17 05:59 05:59 05:59 Intake Total 1986 2255.2 Output Total 1515 3490 Balance 472 -1234.8 Weight 77.11 kg Intake: Oral (ml) 2000 IV Infused (ml) 1986 255.2 Dexmedetomidine in 0.9 % 14 11.2 NaCl 100 ml @ Titrate IV CONT KEO Rx#:[id number] Lr 1,000 ml @ 125 mls/hr 1597 IV CONT KEO Rx#: [id number] NS W/ 20 KCl/L 1,000 ml @ 346 244 100 mls/hr IV CONT KEO Rx#:[id number] Output: Urine (ml) 1400 3250 Catheter 1400 Urinal 3250 GIANFRANCO Drain Output (ml) 115 240 Back Oswaldo Gibson 115 240 Other: Intake Quantity Yes Sufficient Output Comment Catheter STRAIGHT CATH, PT UNABLE TO VOID Vital Signs Temp Pulse Resp BP Pulse Ox 37 C 94 25 H 112/88 H 97 05/15/17 04:00 05/15/17 04:00 05/15/17 04:00 05/15/17 04:00 05/15/17 04:00 Laboratory Results 05/14/17 19:09 05/14/17 19:09 ICD10 Worksheet Patient Problems: Problems Problem Status Onset Lumbar verterbral fracture, traumatic Acute
[2017-05-15] MEDS: FAMOTIDINE 20 MG TAB PO SCH ×2 (08:13→21:03)
[2017-05-15] MEDS: SENNOSIDES/DOCUSATE SODIUM TAB PO SCH ×2 (08:13→21:03)
[2017-05-15] MEDS: morphINE SR 15 MG TAB PO SCH ×2 (08:14→21:03)
[2017-05-15] MEDS ORDERED: CYCLOBENZAPRINE 10 MG TAB PO PRN (12:41)
[2017-05-15] MEDS ORDERED: morphINE SR 15 MG TAB PO SCH ×2 (12:42→12:59)
[2017-05-15] MEDS ORDERED: LORazepam 1 MG TAB PO PRN (12:42)
--- NOTE | 2017-05-15 12:56 | PDINTPN ---
Order Filler Progress Note Assessment/Plan: Assessment: Status post lumbar burst fracture, surgical repair. Neurologic changes present prior to surgery resolved. Overall, doing well. Postop pain. Remains an issue. We will be unable to take away all of his pain. Somnolent secondary to medications today so additional medications clearly not needed. Will continue to ambulate. Plan: Subjective: Doing okay. Walked earlier with physical therapy. Sleepy secondary to pain medications. Objective: Vital Signs Temp Pulse Resp BP Pulse Ox 36.9 C 95 12 124/79 H 98 05/15/17 07:58 05/15/17 07:58 05/15/17 07:58 05/15/17 07:58 05/15/17 07:58 Laboratory Results 05/14/17 19:09 05/14/17 19:09 05/14/17 05/15/17 05/16/17 05:59 05:59 05:59 Intake Total 1987 2255.2 Output Total 1515 3490 1540 Balance 472 -1234.8 -1540 PT 13.0 SEC (12.0-15.0) 05/13/17 10:58 INR 0.96 (0.83-1.16) 05/13/17 10:58 Physical Exam - Physical Exam General Appearance: other (Sleepy, arouses for short time and falls back to sleep), No alert EENT: PERRL/EOMI, other (Nasal cannula at 2 L) Neck: normal inspection (No obvious JVD) Respiratory: lungs clear, decreased breath sounds (At bases), No rales, No rhonchi Cardiac/Chest: regular rate, rhythm, tachycardia (At times, with increased pain and activity) Abdomen: non-tender, soft (Overweight), No normal bowel sounds (Decreased, present) Back: Other (GIANFRANCO drain in place, incision dressed) Skin: normal color, warm/dry Extremities: No pedal edema Neuro/Psych: no motor/sensory deficits, No cognition abnormalities ICD10 Worksheet Patient Problems: Problems Problem Status Onset Lumbar verterbral fracture, traumatic Acute
--- NOTE | 2017-05-15 13:38 | HOSPPROG ---
Hospitalist Progress Note Assessment/Plan: This 36-year-old male new to my care admitted by surgery after having a fall resulting in L4 burst fracture we are asked to consult on due to: # chest pain, tachycardia, and hypoxemia (resolved) -I reviewed the CT angio of the chest done yesterday that was negative for PE or etiology of his symptoms. Serial troponins were done that were negative. I suspect his symptoms could have been due to GI source or possibly from a panic attack Hospital Medicine will continue to follow Subjective: Chest pain and shortness of breath is resolved. The pain was described as a sharp pain over his heart yesterday. He did have episode of vomiting after eating breakfast. Objective: Vital Signs Temp Pulse Resp BP Pulse Ox 36.9 C 95 12 124/79 H 98 05/15/17 07:58 05/15/17 07:58 05/15/17 07:58 05/15/17 07:58 05/15/17 07:58 Laboratory Results 05/14/17 19:09 05/14/17 19:09 05/14/17 05/15/17 05/16/17 05:59 05:59 05:59 Intake Total 1986 2255.2 Output Total 1515 3490 1540 Balance 472 -1234.8 -1540 PT 13.0 SEC (12.0-15.0) 05/13/17 10:58 INR 0.96 (0.83-1.16) 05/13/17 10:58 Laboratory Tests 05/14/17 05/15/17 19:09 06:05 Troponin I < 0.012 < 0.012 - Physical Exam Constitutional: no apparent distress, appears nourished, not in pain Ears, Nose, Mouth, Throat: moist mucous membranes, hearing normal, ears appear normal, no oral mucosal ulcers Cardiovascular: regular rate and rhythym, no murmur, rub, or gallop Respiratory: no respiratory distress, no rales or rhonchi, clear to auscultation Gastrointestinal: normoactive bowel sounds, soft, non-tender abdomen, no palpable masses, No guarding, No rebound ICD10 Worksheet Patient Problems: Problems Problem Status Onset Lumbar verterbral fracture, traumatic Acute
--- NOTE | 2017-05-15 14:26 | ASMTCMCOM ---
CM Note CM Note Notes: Lauren Garland RN is patient's emergency medical technician basic.She came today to visit patient and give us her information. Patient's claim number is [id number] which needs to be referenced when calling to coordinate patient's d/c plan. Lauren's phone number is [phone] and her fax is [phone]. Spoke with patient's nurse who states patient most likely will be able to do outpatient rehab. PT/OT are recommending home at this time. Home Care may be a consideration based on patient's progress. CM will follow. Date Signed: 05/15/2017 02:26 PM Electronically Signed By:Carmel Stephens LCSW
[2017-05-16] MEDS: oxyCODONE IR 5 MG TAB PO PRN ×2 (05:18→14:06)
[2017-05-16] MEDS: GABAPENTIN 300 MG CAP PO SCH ×2 (05:18→14:04)
[2017-05-16] MEDS: ACETAMINOPHEN 500 MG TAB PO SCH ×2 (05:18→14:04)
--- NOTE | 2017-05-16 07:43 | NEUSURGPN ---
Date of Surgery: 05/13/17 Post Op Day: 3 Assessment/Plan: Assessment: 36 yo M sp L3-5 fusion with L4/5 laminectomy POD #3 Plan: -neuro: stable and doing well overall -PT/OT-CPM -standing x-rays look good-reduced. L1 compression fracture stable -church removed and voiding well. No groin numbness -LSO brace when out of bed -scd/dakotah for dvt prophylaxis -q4 hour neuro checks -please call with neuro changes -ok to dc when criteria met-rxs and dc paperwork done and will need to be finalized by admitting team -discussed with Dr Patel Subjective: Awake and alert. NAD. Eating/drinking and voiding. No f/c/n/v/d. Objective: AAO x 3, PERRLA/EOMI no droop CN 2-12 grossly intact +lt touch 5/5 BUE/BLE = CDI GIANFRANCO in place Neuro Check Frequency: per routine Urinary Catheter in Place: No Catheter Insertion Date: 05/14/17 - Physician Discussed Patient with : Amanda Neurosurgery Physical Exam - Vitals, I&O, Labs I and O 05/15/17 05/16/17 05/17/17 05:59 05:59 05:59 Intake Total 2255.2 Output Total 3490 2290 Balance -1234.8 -2290 Intake: Oral (ml) 2000 IV Infused (ml) 255.2 Dexmedetomidine in 0.9 % 11.2 NaCl 100 ml @ Titrate IV CONT KEO Rx#:[id number] NS W/ 20 KCl/L 1,000 ml @ 244 100 mls/hr IV CONT KEO Rx#:[id number] Output: Urine (ml) 3250 1600 Toilet 150 Urinal 3250 1450 Emesis (ml) 600 GIANFRANCO Drain Output (ml) 240 90 Back Oswaldo Gibson 240 90 Other: Intake Quantity Yes Yes Sufficient Number of Voids Urinal 2 Number of Stools Toilet 1 Urinal 1 Vital Signs Temp Pulse Resp BP Pulse Ox 36.7 C 96 16 130/82 H 95 05/16/17 04:00 05/16/17 04:00 05/16/17 04:00 05/16/17 04:00 05/16/17 04:00 Laboratory Results 05/14/17 19:09 05/14/17 19:09 ICD10 Worksheet Patient Problems: Problems Problem Status Onset Lumbar verterbral fracture, traumatic Acute
[2017-05-16] MEDS: morphINE SR 15 MG TAB PO SCH (08:51)
[2017-05-16] MEDS: FAMOTIDINE 20 MG TAB PO SCH (08:52)
[2017-05-16] MEDS: SENNOSIDES/DOCUSATE SODIUM TAB PO SCH (08:52)
--- NOTE | 2017-05-16 10:13 | PDIAF ---
- Diagnosis Diagnosis: s/p L3-L5 fusion Code Status: Full Code - Medication Management Discharge Medications: Medications to Continue on Transfer Multivitamins [Multivitamin (*)] 1 each PO DAILY 05/13/17 [Last Taken Unknown] Acetaminophen [Tylenol ES 500 mg (*)] 1,000 mg PO Q8HRS tab 05/16/17 [Last Taken Unknown] Cyclobenzaprine [Flexeril 10 MG (*)] 10 mg PO TID PRN #60 tab 05/16/17 [Last Taken Unknown] Methocarbamol [Robaxin 750 mg (*)] 750 mg PO QID PRN #90 tab 05/16/17 [Last Taken Unknown] Sennosides/Docusate Sodium [Senokot-S] 1 - 2 tab PO BID #30 tab 05/16/17 [Last Taken Unknown] morphINE SR [Ms Contin/Oramorph 15 mg (*)] 15 mg PO BID #42 tab 05/16/17 [Last Taken Unknown] oxyCODONE IR [Oxycodone Ir (*)] 5 - 10 mg PO Q4HRS PRN #90 tab 05/16/17 [Last Taken Unknown] 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 - Orders Services needed: Physical Therapy Oxygen: to keep O2 sat above 90% Diet Recommendation: no restrictions on diet Diet Texture: Regular Texture Diet Wound Care Instructions: remove dressing on Saturday. leave steri strips in place for 14 days. no baths. ok for shower on Saturday - Follow Up Care Current Providers and Referrals: Sherri Patel DO [Doctor of Osteopathy] - (follow up in 2 weeks) Patient,NotPresent [Unknown] - As per Instructions
[2017-05-16] MEDS: METHOCARBAMOL 750 MG TAB PO PRN (10:54)
[2017-05-16 11:56] VITALS: RESP 16
--- NOTE | 2017-05-16 12:30 | ASMTCMCOM ---
CM Note CM Note Notes: 05/16/2017 Case Management Note Met w/pt to discuss PT recommendation for home PT services. Pt in agreement. Confirmed address [place] [id number] [place] [address] phone number is [phone] Case Management contacted Lauren Garland lining caser for [employer] [facility] at [phone] (p), (f). Lauren referred Case Management to Dionna Torre from [facility] [employer] case management for assistance in setting up home care PT. Dionna Torre can be reached at [phone] ext [phone] fax [phone] Dionna to arrange for Home Care PT Services and contact pt with agency information. Faxed d/c paperwork to Dionna. There were case management d/c needs for the pt. Pt to transport home. Date Signed: 05/16/2017 12:29 PM Electronically Signed By:Arlene Lisa RN
--- NOTE | 2017-05-16 15:08 | HOSPPROG ---
Hospitalist Progress Note Assessment/Plan: This 36-year-old male new to my care admitted by surgery after having a fall resulting in L4 burst fracture we are asked to consult on due to: # chest pain, tachycardia, and hypoxemia (resolved) -I reviewed the CT angio of the chest done yesterday that was negative for PE or etiology of his symptoms. Serial troponins were done that were negative. Agree with discharge home. Subjective: Denies chest pain. Denies shortness of breath. Feels well today would like to leave. He is tolerating his diet and is no longer throwing up Objective: Vital Signs Temp Pulse Resp BP Pulse Ox 36.8 C 90 16 141/85 H 94 05/16/17 11:54 05/16/17 07:56 05/16/17 11:54 05/16/17 11:54 05/16/17 11:54 Laboratory Results 05/14/17 19:09 05/14/17 19:09 05/15/17 05/16/17 05/17/17 05:59 05:59 05:59 Intake Total 2255.2 Output Total 3490 2290 75 Balance -1234.8 -2290 -75 PT 13.0 SEC (12.0-15.0) 05/13/17 10:58 INR 0.96 (0.83-1.16) 05/13/17 10:58 - Physical Exam Constitutional: no apparent distress, appears nourished, not in pain ICD10 Worksheet Patient Problems: Problems Problem Status Onset Lumbar verterbral fracture, traumatic Acute
[2017-05-16 16:12] VITALS: BP 124/83; PULSE 114; TEMP 98.7; O2SAT 91
[2017-05-17] MEDS ORDERED: ENOXAPARIN 40 MG/0.4 ML SYR SC SCH (09:00)
--- NOTE | 2017-05-17 16:28 | ASDISCHSUM ---
Discharge Information Plan Status:Home with Home Health Medically Cleared to Leave:05/15/2017 Discharge Date:05/16/2017 05:20 PM CM D/C Disposition:Home Health Service ADT D/C Disposition:Home, Routine, Self-Care Projected Discharge Date:05/16/2017 11:00 AM Transportation at D/C:Family Discharge Delay Reason: Follow-Up Date:05/16/2017 11:00 AM Discharge Slot: Final Diagnosis:fall': Lumbar fx's Placement Information Referral Type:*Home Health Care Services Referral ID:[id number] Provider Name: Address 1: Phone Number: Address 2: Fax Number: City: Selection Factors: State: Patient Contact Information Contact Name:UMANG Relationship: Address:[address] City:[place] Alternate Phone: State/Zip Code:[place] [address] Email: Financial Information Financial Class:Worker's Compensation Primary Plan Desc:ESIS Primary Plan Number:[id number] Secondary Plan Desc: Secondary Plan Number: Assessment Information [facility] CM Progress Note CM Note CM Note Notes: Patient brought into ED via EMS as Full Trauma Activation after he fell approximately 20 feet from a tree he was trimming. Patient admitted for several lumbar fractures and further neuro monitoring. Patient's brother, Reyes Polanco (Lorenzo) ([phone]) was only listed emergency contact. Spoke with Mitesh; updated on patient's status and he later arrived to the ED. Mitesh contacted pt's mother Huma Be ([phone]) and patient's Olivia Polanco ([phone]); both also later arrived to the ED. Patient and Olivia live in [place]. Patient works for [employer] ([phone]). Pt's rfid manager is Francisco Javier Mendez ([phone]) and presented to the ED, provided update and workman's comp paperwork. Neurosurg to follow; anticipate PT/OT evals when medically stable. CM to follow. Date Signed: 05/13/2017 03:24 PM Electronically Signed By:Priya Geronimo RN [facility] CM Progress Note CM Note CM Note Notes: 36 year old male fell 20' while tree trimming, had lumbar fx's. POD#1 after L3-5 Fusion, L4-5 Lami. To wear a brace and work with therapies. Received a call from [employer] [phone], who can assist w/discharge planning. CM to follow. Date Signed: 05/14/2017 09:46 AM Electronically Signed By:Jodi Hahn LCSW [facility] CM Progress Note CM Note CM Note Notes: Lauren Garland RN is patient's medical research scientist.She came today to visit patient and give us her information. Patient's claim number is [id number] which needs to be referenced when calling to coordinate patient's d/c plan. Lauren's phone number is [phone] and her fax is [phone]. Spoke with patient's nurse who states patient most likely will be able to do outpatient rehab. PT/OT are recommending home at this time. Home Care may be a consideration based on patient's progress. CM will follow. Date Signed: 05/15/2017 02:26 PM Electronically Signed By:Carmel Stephens LCSW [facility] TIANNA Progress Note CM Note CM Note Notes: 05/16/2017 Case Management Note Met w/pt to discuss PT recommendation for home PT services. Pt in agreement. Confirmed address as [address] [place] [id number] phone number is [phone] Case Management contacted Lauren Garland community case manager for [employer] [facility] at [phone] (p), (f). Lauren referred Case Management to Dionna Torre from [facility] [employer] case management for assistance in setting up home care PT. Dionna Torre can be reached at [phone] ext [phone] fax [phone] Dionna to arrange for Home Care PT Services and contact pt with agency information. Faxed d/c paperwork to Dionna. There were case management d/c needs for the pt. Pt to transport home. Date Signed: 05/16/2017 12:29 PM Electronically Signed By:Arlene Lisa RN Intervention Information
== END 2017-05-16 17:20 | disposition home health service (06) | DRG 460 ==
LOC: EDUNIT# → F2N 13:26 → F3N 05-15 17:20
PROVIDERS: ADMIT Neurological Surgery; ATTEND Neurological Surgery
DX: S32.042A Unstable burst fracture of fourth lumbar vertebra, initial encounter for closed fracture (principal); Y93.H9 Activity, other involving exterior property and land maintenance, building and construction; Y99.0 Civilian activity done for income or pay; W17.89XA Other fall from one level to another, initial encounter; G83.4 Cauda equina syndrome; D62 Acute posthemorrhagic anemia; R09.02 Hypoxemia; R07.9 Chest pain, unspecified; R00.0 Tachycardia, unspecified
CPT/HCPCS: 82947-QW; 92507-GN; 92523-GN; 96374; 97116-GP; 97161-GP; 97165-GO; 97535-GO; C1713; J0171; J0330; J0690; J1100; J1170; J2060; J2370; J2405; J2704; J3010; Q9967

== ENCOUNTER 2017-05-31 13:00 | Emergency (ER) | payer OTHER ==
[2017-05-31] MEDS ORDERED: NS 1,000 ML IV ONE (13:16)
[2017-05-31] MEDS ORDERED: HYDROmorphONE/DILAUDID 1 MG/ML INJ IVP ONE ×2 (13:16→13:43)
[2017-05-31] MEDS ORDERED: LORazepam 2 MG/ML INJ IVP ONE (13:16)
--- NOTE | 2017-05-31 13:19 | EDPHY ---
H & P Stated Complaint: S/P BACK SURGERY. EXTREME GROIN PAIN Time Seen by Provider: 05/31/17 13:12 HPI/ROS: CHIEF COMPLAINT: Right testicle and right lower abdominal pain x3 days HISTORY OF PRESENT ILLNESS: 36-year-old male history of chronic back pain complaining of 3 days of right testicle and right lower abdominal pain worse with palpation of either location. No nausea or vomiting. Bowel movements normal. Last oral intake was at 9:00 a.m. today. Patient was initially seen by his neurosurgeon Dr. Sherri Patel referred him to the ER for further evaluation of his complaints. Denies acute trauma. Denies fever chills. Denies saddle anesthesia. Denies incontinence or retention. REVIEW OF SYSTEMS: A ten point review of systems was performed and is negative with the exception of the items mentioned in the HPI PAST MEDICAL & SURGICAL HISTORY: History of L4 burst fracture secondary to to 20 ft fall from tree the with ORIF 05/14/[address] Sherri Patel SOCIAL HISTORY:Nonsmoker PHYSICAL EXAM (Prior to examination, patient consented to physical exam, hands were washed and my usual and customary physical exam procedures followed) 1) GENERAL: Well-developed, well-nourished, alert and oriented. Appears uncomfortable, whimpering 2) HEAD: Normocephalic, atraumatic 3) HEENT: Pupils equal, round, reactive to light bilaterally. Sclera anicteric. 4) NECK: Full range of motion, no meningeal signs. 5) LUNGS: Clear auscultation bilaterally, no wheezes, no rhonchi, no retractions. 6) HEART: Regular rate and rhythm, no murmur, no heave, no gallop. 7) ABDOMEN: No guarding, tender to palpation right lower quadrant with positive McBurney's point pain negative Maria's, negative Rovsing's, negative peritoneal sign, 8) MUSCULOSKELETAL: Moving all extremities, no focal areas of tenderness, no obvious trauma. No peripheral edema or discoloration. 9) BACK: Lumbar brace in place. Surgical scars noted. Epithelializing appropriately. 10) SKIN: No rash, no petechiae. 11) : Bilateral testicles descended bilateral cremasteric reflex present, tender to palpation right testicle with no high-riding or abnormal little station palpation beyond pain.. Perineum nontender. No urethral discharge. DIFFERENTIAL DIAGNOSIS: My differential diagnosis includes, but is not limited to, acute appendicitis, acute cholecystitis, bowel obstruction, acute pancreatitis, testicular torsion, gastritis and urinary tract infection. The patient understands that this diagnosis is provisional and can never be 100% accurate. This is a partial list of diagnoses considered. These considerations are based on history, physical exam, past history and reassessment.] - Medical/Surgical History Hx Asthma: No Hx Chronic Respiratory Disease: No Hx Diabetes: No Hx Cardiac Disease: No Hx Renal Disease: No Hx Cirrhosis: No Hx Alcoholism: No Hx HIV/AIDS: No Hx Splenectomy or Spleen Trauma: No Other PMH: L3-L5 LAMI 05/2017 - Social History Smoking Status: Never smoked Constitutional: Initial Vital Signs Temperature (C) 36.4 C 05/31/17 13:11 Heart Rate 99 05/31/17 13:11 Respiratory Rate 16 05/31/17 13:11 Blood Pressure 145/102 H 05/31/17 13:11 O2 Sat (%) 98 05/31/17 13:11 O2 Delivery Mode Room Air O2 (L/minute) 2 Allergies/Adverse Reactions: No Known Allergies Allergy (Verified 05/13/17 11:38) Home Medications: Medication Instructions Recorded Multivitamins [Multivitamin (*)] 1 each PO DAILY 05/13/17 Acetaminophen [Tylenol ES 500 mg 1,000 mg PO Q8HRS tab 05/16/17 (*)] Cyclobenzaprine [Flexeril 10 MG 10 mg PO TID PRN #60 tab 05/16/17 (*)] Methocarbamol [Robaxin 750 mg (*)] 750 mg PO QID PRN #90 tab 05/16/17 Sennosides/Docusate Sodium 1 - 2 tab PO BID #30 tab 05/16/17 [Senokot-S] morphINE SR [Ms Contin/Oramorph 15 15 mg PO BID #42 tab 05/16/17 mg (*)] oxyCODONE IR [Oxycodone Ir (*)] 5 - 10 mg PO Q4HRS PRN #90 tab 05/16/17 Docusate Sodium [Colace] 100 mg PO BID #6 cap 05/31/17 levOFLOXACIN [Levaquin] 500 mg PO DAILY 10 Days tablet 05/31/17 Medical Decision Making - Diagnostics Imaging Results: Imaging Impressions Abdomen CT 05/31/17 13:15 Impression: 1. Constipation with fecalization of distal small bowel suggesting delayed transit. 2. Mild distention of jejunum in the left upper quadrant, smoothly tapering distally, possibly related to ileus or peristalsis, without evidence of obstruction. 3. Interval increase in spleen size and slight increase in lymph node size since the comparison. 4. L3-L5 posterior fusion with multiple known fractures, as above. 5. Nonobstructing nephrolithiasis. 6. Additional findings as above. Findings discussed with Rad Guan on 05/31/2017 at 14:46. Testicular Ultrasound 05/31/17 13:16 Impression: Mild hyperemia in the right testicle, suspicious for orchitis. Findings discussed with Rad Guan 05/31/2017 at 13:55. Images reviewed myself ED Course/Re-evaluation: 2:54 p.m.: Patient re-examined. Discussed his imaging results. This time he is pain free, smiling watching TV. Re-examined abdomen which is soft no guarding no rebound no McBurney's point pain. Re-examined his testicles which are nontender, bilateral cremasteric reflex present. Discussed his ultrasound showing no evidence of torsion, the, possible orchitis. Discussed his CT imaging showing normal appendix, evidence of constipation. On further discussion he notes that he has not had a bowel movement in approximately 5 days , this combined with his new onset opiate use secondary to his acute injury such as more than likely opiate induced constipation. No nausea or vomiting, tolerating oral intake well. I think that acute surgical abdominal pathology less than likely, I think that torsion less than likely in this patient at this time. Plan will be discharge home with levaquin (for non std suspected orchitis), medication for constipation . Doubt prostatitis. Care of patient under supervision of secondary supervising physician Dr Wolf with whom I discussed case . - Data Points Laboratory Results: Laboratory Results 05/31/17 13:18 05/31/17 13:18 05/31/17 05/31/17 05/31/17 14:27 13:18 13:18 WBC 8.62 10^3/uL 10^3/uL (3.80-9.50) RBC 4.92 10^6/uL 10^6/uL (4.40-6.38) Hgb 15.0 g/dL g/dL (13.7-17.5) Hct 41.1 % % (40.0-51.0) MCV 83.5 fL fL (81.5-99.8) MCH 30.5 pg pg (27.9-34.1) MCHC 36.5 g/dL g/dL (32.4-36.7) RDW 13.7 % % (11.5-15.2) Plt Count 514 10^3/uL H 10^3/uL (150-400) MPV 8.6 fL L fL (8.7-11.7) Neut % (Auto) 54.8 % % (39.3-74.2) Lymph % (Auto) 37.8 % % (15.0-45.0) Lynn % (Auto) 5.0 % % (4.5-13.0) Eos % (Auto) 1.5 % % (0.6-7.6) Baso % (Auto) 0.7 % % (0.3-1.7) Nucleat RBC Rel Count 0.0 % % (0.0-0.2) Absolute Neuts (auto) 4.72 10^3/uL 10^3/uL (1.70-6.50) Absolute Lymphs (auto) 3.26 10^3/uL H 10^3/uL (1.00-3.00) Absolute Monos (auto) 0.43 10^3/uL 10^3/uL (0.30-0.80) Absolute Eos (auto) 0.13 10^3/uL 10^3/uL (0.03-0.40) Absolute Basos (auto) 0.06 10^3/uL 10^3/uL (0.02-0.10) Absolute Nucleated RBC 0.00 10^3/uL 10^3/uL (0-0.01) Immature Gran % 0.2 % % (0.0-1.1) Immature Gran # 0.02 10^3/uL 10^3/uL (0.00-0.10) Sodium 140 mEq/L mEq/L (135-145) Potassium 4.4 mEq/L mEq/L (3.5-5.2) Chloride 104 mEq/L mEq/L (97-110) Carbon Dioxide 20 mEq/l L mEq/l (22-31) Anion Gap 16 mEq/L mEq/L (8-16) BUN 18 mg/dL mg/dL (7-23) Creatinine 0.8 mg/dL mg/dL (0.7-1.3) Estimated GFR > 60 Glucose 109 mg/dL H mg/dL (70-100) Calcium 10.4 mg/dL mg/dL (8.5-10.4) Total Bilirubin 0.8 mg/dL mg/dL (0.1-1.4) Conjugated Bilirubin 0.4 mg/dL mg/dL (0.0-0.5) Unconjugated Bilirubin 0.4 mg/dL mg/dL (0.0-1.1) AST 67 IU/L H IU/L (17-59) ALT 115 IU/L H IU/L (21-72) Alkaline Phosphatase 167 IU/L H IU/L (38-126) Creatine Kinase Total Protein 8.0 g/dL g/dL (6.3-8.2) Albumin 4.8 g/dL g/dL (3.5-5.0) Lipase 117 IU/L IU/L (23-300) Urine Color YELLOW Urine Appearance CLEAR Urine pH 6.0 (5.0-7.5) Ur Specific Brimley 1.023 (1.002-1.030) Urine Protein NEGATIVE (NEGATIVE) Urine Ketones NEGATIVE (NEGATIVE) Urine Blood NEGATIVE (NEGATIVE) Urine Nitrate NEGATIVE (NEGATIVE) Urine Bilirubin NEGATIVE (NEGATIVE) Urine Urobilinogen NEGATIVE EU EU (0.2-1.0) Ur Leukocyte Esterase NEGATIVE (NEGATIVE) Urine RBC 1-3 /hpf /hpf (0-3) Urine WBC 1-3 /hpf /hpf (0-3) Ur Epithelial Cells NONE SEEN /lpf /lpf (NONE-1+) Urine Mucus TRACE /lpf /lpf (NONE-1+) Urine Glucose NEGATIVE (NEGATIVE) 05/31/17 13:13 WBC RBC Hgb Hct MCV MCH MCHC RDW Plt Count MPV Neut % (Auto) Lymph % (Auto) Lynn % (Auto) Eos % (Auto) Baso % (Auto) Nucleat RBC Rel Count Absolute Neuts (auto) Absolute Lymphs (auto) Absolute Monos (auto) Absolute Eos (auto) Absolute Basos (auto) Absolute Nucleated RBC Immature Gran % Immature Gran # Sodium Potassium Chloride Carbon Dioxide Anion Gap BUN Creatinine Estimated GFR Glucose Calcium Total Bilirubin Conjugated Bilirubin Unconjugated Bilirubin AST ALT Alkaline Phosphatase Creatine Kinase 70 IU/L IU/L (0-224) Total Protein Albumin Lipase Urine Color Urine Appearance Urine pH Ur Specific Brimley Urine Protein Urine Ketones Urine Blood Urine Nitrate Urine Bilirubin Urine Urobilinogen Ur Leukocyte Esterase Urine RBC Urine WBC Ur Epithelial Cells Urine Mucus Urine Glucose Medications Given: Discontinued Medications Hydromorphone HCl (Dilaudid) 1 mg IVP EDNOW ONE Stop: 05/31/17 13:17 Last Admin: 05/31/17 13:24 Dose: 1 mg Hydromorphone HCl (Dilaudid) 1 mg IVP EDNOW ONE Stop: 05/31/17 13:44 Last Admin: 05/31/17 13:56 Dose: 1 mg Sodium Chloride (Ns) 1,000 mls @ 0 mls/hr IV ONCE ONE PRN Reason: Wide Open Stop: 05/31/17 13:17 Last Admin: 05/31/17 13:25 Dose: 1,000 mls Ketorolac Tromethamine (Toradol) 15 mg IVP EDNOW ONE Stop: 05/31/17 13:44 Last Admin: 05/31/17 13:52 Dose: 15 mg Lorazepam (Ativan Injection) 1 mg IVP EDNOW ONE Stop: 05/31/17 13:17 Last Admin: 05/31/17 13:25 Dose: 1 mg Departure - Departure Disposition: Home, Routine, Self-Care Clinical Impression: Orchitis Constipation Qualifiers: Constipation type: drug induced constipation Qualified Code(s): K59.03 - Drug induced constipation Condition: Good Instructions: Constipation (ED), Orchitis (ED) Referrals: Danie rGoves MD [Medical Doctor] - 2-3 days, call for appt. Prescriptions: Docusate Sodium [Colace] 100 mg PO BID #6 cap levOFLOXACIN [Levaquin] 500 mg PO DAILY 10 Days tablet
[2017-05-31 13:25] LABS: PLATELET COUNT 514 10^3/uL (150-400)
[2017-05-31] MEDS ORDERED: KETOROLAC 30 MG/1 ML SDV IVP ONE (13:43)
[2017-05-31] MEDS ORDERED: IOPAMIDOL (ISOVUE-300) 100 ML BTL ONE (13:47)
[2017-05-31 14:57] VITALS: BP 105/85; PULSE 95; RESP 18; TEMP 97.7; O2SAT 97
== END 2017-05-31 15:15 | disposition home or self-care (01) ==
DX: K59.03 Drug induced constipation (principal); N45.2 Orchitis; T50.905A Adverse effect of unspecified drugs, medicaments and biological substances, initial encounter
CPT/HCPCS: 96374; J1170; J1885; J2060; Q9967